=== PATIENT | female | born 1945 | race Caucasian/White ===

== ENCOUNTER 2018-09-14 09:59 | Outpatient (CLI) | payer MEDICARE, OTHER ==
--- NOTE | 2018-09-26 11:22 | Mammography Report ---
Reason: SCREENING MAMMO Procedure Date: 09/14/2018 Accession Number: [id number] / [id number] Procedure: CECELIA - Screening Mammo w/Harshil CPT Code: FULL RESULT: EXAM: Screening Mammo w/Harshil DATE: 09/14/2018 11:26 AM CLINICAL HISTORY: 73-year-old female for screening. TECHNIQUE: Bilateral CC and MLO views were obtained. COMPARISON: None FINDINGS: The breasts demonstrate scattered fibroglandular densities bilaterally. There are bilateral typically benign coarse calcifications. No suspicious masses, clustered microcalcifications, or regions of architectural distortion are identified. IMPRESSION: Benign findings RECOMMENDATION: Routine annual screening unless otherwise clinically indicated. BIRADS CATEGORY 2: Benign findings STANDARD QUALIFYING STATEMENTS: 1. This examination was not reviewed with the aid of Computer-Aided Detection (CAD). 2. A negative or benign imaging report should not delay biopsy if clinically suspicious findings are present. Consider surgical consultation if warrented. More than 5% of cancers are not identified by imaging. 3. Dense breasts may obscure an underlying neoplasm. 4. This examination was reviewed with the aid of 3D breast imaging (tomosynthesis).
== END 2018-09-14 10:00 | disposition home or self-care (01) ==
LOC: DI 09:59
DX: Z12.31 Encounter for screening mammogram for malignant neoplasm of breast (principal)
CPT/HCPCS: 77063; 77067

== ENCOUNTER 2021-12-04 07:16 | Outpatient (CLI) | payer MEDICARE, OTHER | END 2021-12-04 07:17 | disposition EMS.NT | LOC: EMS 07:16 | DX: R42 Dizziness and giddiness (principal) ==

== ENCOUNTER 2022-01-13 06:35 | Outpatient (CLI) | payer MEDICARE, OTHER | END 2022-01-13 06:36 | disposition short-term general hospital (02) | LOC: EMS 06:35 | DX: R55 Syncope and collapse (principal); Z79.01 Long term (current) use of anticoagulants | CPT/HCPCS: A0425; A0429 ==

== ENCOUNTER 2022-02-16 12:26 | Emergency (ER) | payer MEDICARE, OTHER ==
--- OUTSIDE RECORDS SUMMARY | 2022-02-16 12:48 | EXTERNAL MEDICAL SUMMARY RPT | Continuity of Care Document ---
:1945 Author Organization [facility] Address [address] [place] [address] Phone Care Team Providers Name Role Phone Denice Unavailable Unavailable Allergies No information. Encounters No information. Medications date description facility 20211221 Glipizide 10 MG Oral Tablet [facility] 20211203 ibandronic acid 150 MG Oral [facility] 20211203 Levothyroxine Sodium 0.1 MG Oral Tablet [facility] 20211125 Sulfamethoxazole 800 MG / Trimethoprim 160 MG Oral [facility] Tablet 20211123 Lisinopril 40 MG Oral Tablet [facility] spital Problems date description facility 20220208 Syncope and collapse [facility] 20211231 Other vitamin B12 deficiency anemias I [facility] 20211231 Epistaxis [facility] 20211229 Syncope and collapse [facility] 20211125 Cystitis, unspecified without hematuria [facility] Procedures date description facility 20220113 General Physician [facility] 20211231 General Physician [facility] 20211231 Finding [facility] 20211231 Diagnosis [facility] 20211229 [facility] 20211221 [facility] 20211209 [facility] 20211125 [facility] Results No information. Vital Signs date measurement value source 20211209 weight_standard 61.8 lb 20211209 weight_metric 28.03 kg 20211209 height_standard 64 in 20211209 height_metric 162.56 cm 20211209 heart_rate 70 /min 20211209 BP_systolic 120 mm[Hg] 20211209 BP_diastolic 68 mm[Hg] 20211209 BMI 23.3 kg/m2 20211221 weight_standard 59.68 lb 20211221 weight_metric 27.07 kg 20211221 height_standard 64 in 20211221 height_metric 162.56 cm 20211221 heart_rate 100 /min 20211221 BP_systolic 130 mm[Hg] 20211221 BP_diastolic 60 mm[Hg] 20211221 BMI 22.6 kg/m2 20220113 weight_standard 63.05 lb 20220113 weight_metric 28.6 kg 20220113 temperature_standard 97.6 F 20220113 temperature_metric 36.44 C 20220113 respiration_rate 18 /min 20220113 height_standard 63 in 20220113 height_metric 160.02 cm 20220113 heart_rate 91 /min 20220113 BP_systolic 136 mm[Hg] 20220113 BP_diastolic 61 mm[Hg] 20220113 BMI 24.6 kg/m2
[2022-02-16] MEDS ORDERED: LIDOCAINE 1%-EPI 1:100000 20 ML MDV SUBQ STA (12:51)
--- NOTE | 2022-02-16 12:52 | ED Physician Documentation ---
History of Present Illness - Stated complaint Stated Complaint: BLEEDING CHIN - Chief complaint Chief Complaint: General - Additonal information Additional information: 76-year-old female presents emergency department for evaluation of a bleeding chin. She noticed a red bump on the tip of her chin that did not resemble a pimple or anything infectious. She was watching TV and picked at it. She noticed as soon as she picked at it it began bleeding and she has been unable to get it to stop since. No history of similar in the past. She takes Plavix only. She is on no other anticoagulation. She is diabetic on Metformin. Review of Systems Constitutional: reports: Reviewed and negative Ears: reports: Reviewed and negative Nose: reports: Reviewed and negative Throat: reports: Reviewed and negative Cardiac: reports: Reviewed and negative Respiratory: reports: Reviewed and negative GI: reports: Reviewed and negative : reports: Reviewed and negative Skin: reports: Other (Bleeding on chin) PD PAST MEDICAL HISTORY - Present Medications Home Medications: Ambulatory Orders Medication Instructions Recorded Confirmed Clopidogrel [Plavix] 75 mg PO DAILY 02/16/22 02/16/22 Folic Acid 1 mg PO DAILY 02/16/22 02/16/22 Glipizide [Glipizide ER] 5 mg PO DAILY 02/16/22 02/16/22 Levothyroxine [Synthroid] 100 mcg PO QDAC 02/16/22 02/16/22 Lisinopril [Zestril] 20 mg PO DAILY 02/16/22 02/16/22 Metformin HCl [Metformin ER 1,000 mg PO BIDWM 02/16/22 02/16/22 Gastric] Methotrexate [Methotrexate Sodium] 2.5 mg PO ONCE 02/16/22 02/16/22 Pioglitazone HCl [Actos] 45 mg PO DAILY PM 02/16/22 02/16/22 Simvastatin [Zocor] 20 mg PO DAILY 02/16/22 02/16/22 - Allergies Allergies/Adverse Reactions: Allergies Allergy/AdvReac Type Severity Reaction Status Date / Time No Known Drug Allergies Allergy Verified 02/16/22 12:36 PD ED PE EXPANDED - General General: Alert, No acute distress - HEENT HEENT: Other (Superficial vessel on the center chin that is bleeding when not compressed.) Results - Vitals Vitals: Vital Signs - 24 hr 02/16/22 12:36 Temperature 36.9 C Heart Rate 103 H Respiratory 18 Rate Blood Pressure 166/65 H O2 Saturation 98 Oxygen O2 Source Room air Procedures - General procedure General procedure: Patient had a superficial vessel bleeding on the tip of her chin. Initially we injected 1% lidocaine with epi around the vessel but it did not stop the bleeding. We then used a small amount of Surgicel and Coban as compressive bandage. After 15 minutes the bleeding had fully stopped and a simple bandage was placed. PD MEDICAL DECISION MAKING - ED course Complexity details: considered differential, d/w patient ED course: 76-year-old female who is on Plavix only presents the emergency department with a superficial vessel on the tip of her chin which began bleeding when she picked at it. She was unable to get it to stop bleeding despite holding pressure at home. Here in the emergency department we initially injected with 1 cc of 1% lidocaine with epi. This did not get the bleeding to stop. We then placed Surgicel foam and a compressive bandage on the chin which seems to have adequately stop the bleeding. The patient accidentally picked at the Surgicel off and no further bleeding was noted. A simple bandage was placed. No findings to suggest infection or cellulitis. Emergent return precautions were discussed. Departure - Departure Disposition: 01 Home, Self Care Clinical Impression: Bleeding of blood vessel Condition: Stable Record reviewed to determine appropriate education?: Yes Comments: Marianne you are seen today in the emergency department for a blood vessel that was on the surface of the skin that you picked and it began to bleed. We were able to successfully get it to stop bleeding after injecting it with lidocaine/epinephrine and following up with a compressive bandage and a foam called Surgicel. It no longer appears to be bleeding. I would not manipulate or touch it for the next 48 to 72 hours. If you find that begins to rebleed you may need to return to the ER. I would like you to follow closely with your primary care provider or laborer mine though in the long-term I do not expect any complications.
[2022-02-16 14:04] VITALS: BP 133/59
== END 2022-02-16 14:04 | disposition home or self-care (01) ==
LOC: ED 12:26
DX: S01.80XA Unspecified open wound of other part of head, initial encounter (principal); R58 Hemorrhage, not elsewhere classified; X58.XXXA Exposure to other specified factors, initial encounter
CPT/HCPCS: 99281

== ENCOUNTER 2022-11-23 11:47 | Outpatient (CLI) | payer MEDICARE, OTHER | END 2022-11-23 11:48 | disposition critical access hospital (66) | LOC: EMS 11:47 | DX: R07.89 Other chest pain (principal) | CPT/HCPCS: A0425; A0429 ==

== ENCOUNTER 2022-11-23 12:05 | Emergency (ER) | payer MEDICARE, OTHER ==
--- NOTE | 2022-11-23 12:32 | XRAY Report ---
PROCEDURE: Chest 1 View X-Ray INDICATIONS: CP TECHNIQUE: One view of the chest was acquired. COMPARISON: None. FINDINGS: Surgical changes and devices: None. Lungs and pleura: Bilateral interstitial infiltrates and bronchiectasis. No pleural effusions or pne umothorax. Mediastinum: Mediastinal contours appear normal. Heart size is normal. Bones and chest wall: No suspicious bony lesions. Overlying soft tissues appear unremarkable. IMPRESSION: 1. Bilateral interstitial infiltrates and bronchiectasis suspicious for chronic interstitial lung dis ease. Recommend nonemergent HRCT of the lung for further evaluation. Reviewed by: Irina Alonso MD on 11/23/2022 12:31 PM PST Approved by: Irina Alonso MD on 11/23/2022 12:31 PM PST Station ID: [id number]
[2022-11-23 12:38] LABS: BASOPHILS % (AUTO) 0.2 %; EOSINOPHILS % (AUTO) 44.4 %; HCT - HEMATOCRIT 42.2 % (37.0-47.0); HGB - HEMOGLOBIN 13.3 g/dL (12.0-16.0); LYMPHOCYTES % (AUTO) 4.3 %; MEAN CORPUSCULAR HEMOGLOBIN 30.2 pg (27.0-31.0); MEAN CORPUSCULAR HGB CONC 31.5 g/dL (32.0-36.0); MEAN CORPUSCULAR VOLUME 95.9 fL (81.0-99.0); MEAN PLATELET VOLUME 10.6 fL (7.9-10.8); MONOCYTES % (AUTO) 6.8 %; NEUTROPHILS % (AUTO) 43.5 %; PLT - PLATELET COUNT 370 10^3/uL (130-450); RED CELL DISTRIBUTION WIDTH 13.1 % (12.0-15.0); WHITE BLOOD COUNT 26.3 x10^3/uL (4.8-10.8)
[2022-11-23 12:45] LABS: VBG BASE EXCESS -16.8 mmol/L (-2 - +2); VBG HCO3 10.9 mmol/L (23-28); VBG OXYGEN SATURATION 67.6 % (60-80); VBG PCO2 32.4 mmHg (41-51); VBG PO2 41.5 mmHg (25-47); VBG TOTAL CO2 11.9 mmol/L (24-29)
[2022-11-23 12:46] LABS: VBG PH 7.146 (7.31-7.41)
[2022-11-23 12:48] LABS: KETONES, SERUM (ACETEST) MODERATE (NEGATIVE)
[2022-11-23] MEDS ORDERED: SODIUM CHLORIDE 0.9% 1,000 ML IV STA ×2 (13:00→13:49)
[2022-11-23 13:01] LABS: SLIDE REVIEW? Indicated
[2022-11-23 13:02] LABS: ABNORMAL LYMPHS % (MANUAL) 0 %
[2022-11-23 13:03] LABS: ALBUMIN 4.6 g/dL (3.2-5.5); ALBUMIN/GLOBULIN RATIO 1.5 (1.0-2.2); ALKALINE PHOSPHATASE 47 IU/L (42-121); ALT ALANINE AMINOTRANSFERASE 22 IU/L (10-60); AST ASPARTATE AMINOTRANSFERASE 31 IU/L (10-42); BILIRUBIN,TOTAL 1.4 mg/dL (0.2-1.0); BUN - BLOOD UREA NITROGEN 28 mg/dL (6-20); CALCIUM 9.4 mg/dL (8.5-10.3); CHLORIDE 99 mmol/L (101-111); CREATININE 1.3 mg/dL (0.4-1.0); GFR - MDRD 40 (>89); GLUCOSE 435 mg/dL (70-100); LIPASE 34 U/L (22-51); POTASSIUM 4.5 mmol/L (3.5-5.0); SODIUM 135 mmol/L (135-145); TOTAL PROTEIN 7.7 g/dL (6.7-8.2)
[2022-11-23] MEDS: ONDANSETRON 4 MG/2 ML VIAL IVP STA ×2 (13:03→13:05)
[2022-11-23 13:06] LABS: CARBON DIOXIDE - CO2 11 mmol/L (21-32)
[2022-11-23] MEDS ORDERED: INSULIN REGULAR HUMAN 100 UNIT in SODIUM CHLORIDE 0.9% 100ML 99 ML IV STA (13:15)
[2022-11-23 13:18] LABS: BAND NEUTROPHILS % (MANUAL) 11 %; DIFFERENTIAL COMMENT MANUAL DIFFERENTIAL; LYMPHOCYTES # (MANUAL) 0.5 10^3/uL (1.5-3.5); LYMPHOCYTES % (MANUAL) 1 %; MONOCYTES # (MANUAL) 1.3 10^3/uL (0.0-1.0); NEUTROPHILS # (MANUAL) 24.5 10^3/uL (1.5-6.6); REACTIVE LYMPHS % (MANUAL) 1 %
[2022-11-23] MEDS ORDERED: ASPIRIN 325 MG TABLET PO STA (13:48)
[2022-11-23] MEDS ORDERED: ENOXAPARIN 60 MG/0.6 ML SYRINGE SUBQ SCH (14:00)
[2022-11-23] MEDS ORDERED: MORPHINE 2 MG/ML CARPUJECT IVP STA (14:13)
--- NOTE | 2022-11-23 14:26 | ED Physician Documentation ---
History of Present Illness - Stated complaint Stated Complaint: CP/SOA - Chief complaint Chief Complaint: Cardiac - History obtained from History obtained from: Patient - Additonal information Additional information: Patient is a 77-year-old female presenting for evaluation of chest pain that started yesterday evening. Patient reports that her pain started during the time when her dislocated his hip and required treatment at another hospital. The pain is in the middle of her chest and feels like an aching. It does not radiate elsewhere. She slept in a recliner last night and feels that this made it worse. Nothing makes her chest pain better or worse. She denies difficulty breathing. Today she started having nausea and vomiting this morning. She denies bilious or bloody emesis. She denies abdominal pain. She does have a monitor to check her blood sugars and noted that it was elevated. She does not use insulin for her diabetes. She has a history of TIAs but is not on any blood thinners or aspirin. She denies a history of prior heart attacks and does not see a heel lift gouger. Review of Systems Constitutional: denies: Fever Cardiac: reports: Chest pain / pressure Respiratory: denies: Dyspnea GI: reports: Nausea, Vomiting. denies: Abdominal Pain : denies: Dysuria Musculoskeletal: denies: Back pain Neurologic: denies: Headache PD PAST MEDICAL HISTORY - Past Medical History Past Medical History: Yes Endocrine/Autoimmune: Type 2 diabetes - Present Medications Home Medications: Ambulatory Orders Medication Instructions Recorded Confirmed Clopidogrel [Plavix] 75 mg PO DAILY 02/16/22 02/16/22 Folic Acid 1 mg PO DAILY 02/16/22 02/16/22 Glipizide [Glipizide ER] 5 mg PO DAILY 02/16/22 02/16/22 Levothyroxine [Synthroid] 100 mcg PO QDAC 02/16/22 02/16/22 Lisinopril [Zestril] 20 mg PO DAILY 02/16/22 02/16/22 Metformin HCl [Metformin ER 1,000 mg PO BIDWM 02/16/22 02/16/22 Gastric] Methotrexate [Methotrexate Sodium] 2.5 mg PO ONCE 02/16/22 02/16/22 Pioglitazone HCl [Actos] 45 mg PO DAILY PM 02/16/22 02/16/22 Simvastatin [Zocor] 20 mg PO DAILY 02/16/22 02/16/22 - Allergies Allergies/Adverse Reactions: Allergies Allergy/AdvReac Type Severity Reaction Status Date / Time No Known Drug Allergies Allergy Verified 02/16/22 12:36 - Social History Does the pt smoke?: No Smoking Status: Never smoker Does the pt drink ETOH?: No Does the pt have substance abuse?: No PD ED PE NORMAL - General General: Alert and oriented X 3, No acute distress, Well developed/nourished - HEENT HEENT: Atraumatic. No: Moist mucous membranes - Neck Neck: Supple, no meningeal sign - Cardiac Cardiac: Other (Tachycardic, regular rhythm) - Respiratory Respiratory: No respiratory distress, Clear bilaterally - Abdomen Abdomen: Soft, Non tender, Non distended - Derm Derm: Warm and dry - Extremities Extremities: No edema - Neuro Neuro: Alert and oriented X 3, No motor deficit, Normal speech Results - Vitals Vitals: Vital Signs - 24 hr 11/23/22 11/23/22 11/23/22 12:13 12:52 13:22 Temperature 36.6 C Heart Rate 109 H 109 H 110 H Respiratory 20 16 23 Rate Blood Pressure 151/89 H 142/77 H 143/82 H O2 Saturation 97 98 99 11/23/22 11/23/22 11/23/22 13:30 14:00 14:30 Temperature 36.7 C Heart Rate 111 H 123 H 122 H Respiratory 20 26 H Rate Blood Pressure 115/73 158/90 H O2 Saturation 99 94 100 11/23/22 11/23/22 11/23/22 15:00 15:30 16:00 Temperature Heart Rate 97 107 H 106 H Respiratory 28 H 22 17 Rate Blood Pressure 114/98 H 133/80 H 138/83 H O2 Saturation 97 95 96 11/23/22 11/23/22 11/23/22 16:30 17:00 17:30 Temperature 36.6 C Heart Rate 108 H 110 H 111 H Respiratory 21 22 20 Rate Blood Pressure 130/81 H 134/84 H 135/72 H O2 Saturation 95 97 98 Oxygen O2 Source Room air - EKG (time done) 1212 Rate: Rate (enter#) (108) Rhythm: Sinus tachycardia Intervals: RBBB Ischemia: T wave inversion (Inferior and lateral leads,). No: ST elevation c/w ischemia Compare to prior EKG: Old EKG unavailable - Labs Labs: Laboratory Tests 11/23/22 11/23/22 11/23/22 12:28 12:28 12:28 WBC 26.3 H RBC 4.40 Hgb 13.3 Hct 42.2 MCV 95.9 MCH 30.2 MCHC 31.5 L RDW 13.1 Plt Count 370 MPV 10.6 Neut # (Auto) Not Reportable Lymph # (Auto) Not Reportable [place] # (Auto) Not Reportable Eos # (Auto) Not Reportable Baso # (Auto) Not Reportable Absolute Nucleated RBC Not Reportable Total Counted 100 Band Neuts % (Manual) 11 H Reactive Lymphs % (Man) 1 Abnorm Lymph % (Manual) 0 Nucleated RBC % Not Reportable Neutrophils # (Manual) 24.5 H Lymphocytes # (Manual) 0.5 L Monocytes # (Manual) 1.3 H Eosinophils # (Manual) 0.0 Basophils # (Manual) 0.0 Differential Comment MANUAL DIFFERENTIAL Manual Slide Review Indicated PT INR VBG pH VBG pCO2 VBG pO2 VBG HCO3 VBG Total CO2 VBG O2 Saturation VBG Base Excess Sodium 135 Potassium 4.5 Chloride 99 L Carbon Dioxide 11 L* Anion Gap 25.0 H BUN 28 H Creatinine 1.3 H Estimated GFR (MDRD) 40 L Glucose 435 H Lactic Acid Calcium 9.4 Total Bilirubin 1.4 H AST 31 ALT 22 Alkaline Phosphatase 47 Troponin I High Sens 1135.9 H* Total Protein 7.7 Albumin 4.6 Globulin 3.1 Albumin/Globulin Ratio 1.5 Lipase 34 Urine Color Urine Clarity Urine pH Ur Specific [place] Urine Protein Urine Glucose (UA) Urine Ketones Urine Occult Blood Urine Nitrite Urine Bilirubin Urine Urobilinogen Ur Leukocyte Esterase Ur Microscopic Review Urine Culture Comments Nasal Adenovirus (PCR) Nasal B. parapertussis DNA (PCR) Nasal Coronavir 229E PCR Nasal Coronavir HKU1 PCR Nasal Coronavir NL63 PCR Nasal Coronavir OC43 PCR Nasal Enterovir/Rhinovir PCR Nasal Influenza B PCR Nasal Influenza A PCR Nasal Parainfluen 1 PCR Nasal Parainfluen 2 PCR Nasal Parainfluen 3 PCR Nasal Parainfluen 4 PCR Nasal RSV (PCR) Nasal B.pertussis DNA PCR Nasal C.pneumoniae (PCR) Harry Human Metapneumo PCR Nasal M.pneumoniae (PCR) Nasal SARS-CoV-2 (PCR) Serum Ketones MODERATE H 11/23/22 11/23/2223 12:28 13:17 13:57 WBC RBC Hgb Hct MCV MCH MCHC RDW Plt Count MPV Neut # (Auto) Lymph # (Auto) [place] # (Auto) Eos # (Auto) Baso # (Auto) Absolute Nucleated RBC Total Counted Band Neuts % (Manual) Reactive Lymphs % (Man) Abnorm Lymph % (Manual) Nucleated RBC % Neutrophils # (Manual) Lymphocytes # (Manual) Monocytes # (Manual) Eosinophils # (Manual) Basophils # (Manual) Differential Comment Manual Slide Review PT INR VBG pH 7.146 L VBG pCO2 32.4 L VBG pO2 41.5 VBG HCO3 10.9 L VBG Total CO2 11.9 L VBG O2 Saturation 67.6 VBG Base Excess -16.8 L Sodium Potassium Chloride Carbon Dioxide Anion Gap BUN Creatinine Estimated GFR (MDRD) Glucose Lactic Acid 3.5 H* Calcium Total Bilirubin AST ALT Alkaline Phosphatase Troponin I High Sens Total Protein Albumin Globulin Albumin/Globulin Ratio Lipase Urine Color Urine Clarity Urine pH Ur Specific [place] Urine Protein Urine Glucose (UA) Urine Ketones Urine Occult Blood Urine Nitrite Urine Bilirubin Urine Urobilinogen Ur Leukocyte Esterase Ur Microscopic Review Urine Culture Comments Nasal Adenovirus (PCR) NOT DETECTED Nasal B. parapertussis DNA (PCR) NOT DETECTED Nasal Coronavir 229E PCR NOT DETECTED Nasal Coronavir HKU1 PCR NOT DETECTED Nasal Coronavir NL63 PCR NOT DETECTED Nasal Coronavir OC43 PCR NOT DETECTED Nasal Enterovir/Rhinovir PCR NOT DETECTED Nasal Influenza B PCR NOT DETECTED Nasal Influenza A PCR NOT DETECTED Nasal Parainfluen 1 PCR NOT DETECTED Nasal Parainfluen 2 PCR NOT DETECTED Nasal Parainfluen 3 PCR NOT DETECTED Nasal Parainfluen 4 PCR NOT DETECTED Nasal RSV (PCR) NOT DETECTED Nasal B.pertussis DNA PCR NOT DETECTED Nasal C.pneumoniae (PCR) NOT DETECTED Harry Human Metapneumo PCR NOT DETECTED Nasal M.pneumoniae (PCR) NOT DETECTED Nasal SARS-CoV-2 (PCR) NOT DETECTED Serum Ketones 11/23/22 11/23/22 11/23/22 16:40 17:05 17:05 WBC RBC Hgb Hct MCV MCH MCHC RDW Plt Count MPV Neut # (Auto) Lymph # (Auto) [place] # (Auto) Eos # (Auto) Baso # (Auto) Absolute Nucleated RBC Total Counted Band Neuts % (Manual) Reactive Lymphs % (Man) Abnorm Lymph % (Manual) Nucleated RBC % Neutrophils # (Manual) Lymphocytes # (Manual) Monocytes # (Manual) Eosinophils # (Manual) Basophils # (Manual) Differential Comment Manual Slide Review PT 11.4 INR 1.0 VBG pH VBG pCO2 VBG pO2 VBG HCO3 VBG Total CO2 VBG O2 Saturation VBG Base Excess Sodium 138 Potassium 3.7 Chloride 107 Carbon Dioxide 15 L Anion Gap 16.0 H BUN 23 H Creatinine 1.2 H Estimated GFR (MDRD) 44 L Glucose 270 H Lactic Acid Calcium 8.4 L Total Bilirubin 0.9 AST 33 ALT 22 Alkaline Phosphatase 40 L Troponin I High Sens Total Protein 6.8 Albumin 3.9 Globulin 2.9 Albumin/Globulin Ratio 1.3 Lipase Urine Color YELLOW Urine Clarity CLEAR Urine pH 6.0 Ur Specific [place] >=1.030 H Urine Protein TRACE Urine Glucose (UA) 500 H Urine Ketones >=80 H Urine Occult Blood TRACE-INTA Urine Nitrite NEGATIVE Urine Bilirubin NEGATIVE Urine Urobilinogen 0.2 (NORMAL) Ur Leukocyte Esterase NEGATIVE Ur Microscopic Review NOT INDICATED Urine Culture Comments NOT INDICATED Nasal Adenovirus (PCR) Nasal B. parapertussis DNA (PCR) Nasal Coronavir 229E PCR Nasal Coronavir HKU1 PCR Nasal Coronavir NL63 PCR Nasal Coronavir OC43 PCR Nasal Enterovir/Rhinovir PCR Nasal Influenza B PCR Nasal Influenza A PCR Nasal Parainfluen 1 PCR Nasal Parainfluen 2 PCR Nasal Parainfluen 3 PCR Nasal Parainfluen 4 PCR Nasal RSV (PCR) Nasal B.pertussis DNA PCR Nasal C.pneumoniae (PCR) Harry Human Metapneumo PCR Nasal M.pneumoniae (PCR) Nasal SARS-CoV-2 (PCR) Serum Ketones 11/23/22 17:05 WBC RBC Hgb Hct MCV MCH MCHC RDW Plt Count MPV Neut # (Auto) Lymph # (Auto) [place] # (Auto) Eos # (Auto) Baso # (Auto) Absolute Nucleated RBC Total Counted Band Neuts % (Manual) Reactive Lymphs % (Man) Abnorm Lymph % (Manual) Nucleated RBC % Neutrophils # (Manual) Lymphocytes # (Manual) Monocytes # (Manual) Eosinophils # (Manual) Basophils # (Manual) Differential Comment Manual Slide Review PT INR VBG pH VBG pCO2 VBG pO2 VBG HCO3 VBG Total CO2 VBG O2 Saturation VBG Base Excess Sodium Potassium Chloride Carbon Dioxide Anion Gap BUN Creatinine Estimated GFR (MDRD) Glucose Lactic Acid Calcium Total Bilirubin AST ALT Alkaline Phosphatase Troponin I High Sens 1562.7 H* Total Protein Albumin Globulin Albumin/Globulin Ratio Lipase Urine Color Urine Clarity Urine pH Ur Specific [place] Urine Protein Urine Glucose (UA) Urine Ketones Urine Occult Blood Urine Nitrite Urine Bilirubin Urine Urobilinogen Ur Leukocyte Esterase Ur Microscopic Review Urine Culture Comments Nasal Adenovirus (PCR) Nasal B. 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 Sosa, cardiology at the [facility]. They have added patient to their transfer list but They do not have any current beds available. He agrees with the plan to give the patient aspirin and Lovenox. He also agrees that we should hold the beta-edgard at this time. Patient is tachycardic but this may be related to her DKA and dehydration. Patient presenting for evaluation of chest pain that started last night. She additionally has nausea and vomiting. She is noted to be tachycardic. EKG is a sinus tach with T wave inversions. Labs reviewed and significant for multiple abnormalities including Acidosis likely related to DKA, elevated troponin Concerning for NSTEMI, And leukocytosis.Patient was started on Lovenox and aspirin. After consultation with cardiology we are holding the beta-edgard for now. Patient also started on insulin drip. Patient was also started on Rocephin given the leukocytosis and bandemia. Is unclear the source as her chest x-ray does not suggest pneumonia and her urine is negative for infection. Her abdominal exam has remained benign.Patient requires transfer to facility with cardiology capabilities. She has been placed on area wait list. Unfortunately there is a region wide bed shortage and transfer may take up to several days. Patient is aware of this. Repeat labs have been ordered. Patient signed out at shift change. Departure - Departure Disposition: 02 Transfer Acute Care Hosp Clinical Impression: NSTEMI (non-ST elevated myocardial infarction), DKA (diabetic ketoacidosis), Leukocytosis Condition: Serious
[2022-11-23 14:30] LABS: B. PARAPERTUSSIS- RESP PCR PAN NOT DETECTED; B. PERTUSSIS- RESP PCR PANEL NOT DETECTED; C. PNEUMONIAE- RESP PCR PANEL NOT DETECTED; CORONAVIRUS 229E-RESP PCR NOT DETECTED; CORONAVIRUS HKU1-RESP PCR NOT DETECTED; CORONAVIRUS NL63-RESP PCR NOT DETECTED; CORONAVIRUS OC43-RESP PCR NOT DETECTED; HUMAN METAPNEUMOVIRUS NOT DETECTED; INFLUENZA A- RESP PCR PANEL NOT DETECTED; INFLUENZA B - RESP PCR PANEL NOT DETECTED; M. PNEUMONIAE- RESP PCR PANEL NOT DETECTED; PARAINFLUENZA VIRUS 1 NOT DETECTED; PARAINFLUENZA VIRUS 2 NOT DETECTED; PARAINFLUENZA VIRUS 3 NOT DETECTED; PARAINFLUENZA VIRUS 4 NOT DETECTED; RHINOVIRUS/ENTEROVIRUS NOT DETECTED; RSV- RESP PCR PANEL NOT DETECTED; SARS-CoV-2 -RESP PCR PANEL NOT DETECTED
[2022-11-23] MEDS ORDERED: cefTRIAXone 1 GM in SODIUM CHLORIDE 0.9% MINIBAG 100 ML IV STA (16:17)
[2022-11-23 16:54] LABS: BILIRUBIN,URINE NEGATIVE (NEGATIVE); GLUCOSE, URINE (UA) 500 mg/dL (NEGATIVE); KETONES,URINE (UA) >=80 mg/dL (NEGATIVE); LEUKOCYTE ESTERASE, URINE NEGATIVE (NEGATIVE); NITRITE,URINE NEGATIVE (NEGATIVE); OCCULT BLOOD,URINE TRACE-INTA (NEGATIVE); PROTEIN,URINE TRACE mg/dL (NEGATIVE); UROBILINOGEN,URINE 0.2 (NORMAL) E.U./dL (NORMAL)
[2022-11-23 16:57] LABS: CLARITY,URINE CLEAR (CLEAR)
[2022-11-23 17:17] LABS: PT - PROTHROMBIN TIME 11.4 secs (9.9-12.6)
[2022-11-23] MEDS ORDERED: ONDANSETRON 4 MG/2 ML VIAL IVP PRN (17:18)
[2022-11-23 17:23] LABS: ALBUMIN 3.9 g/dL (3.2-5.5); ALBUMIN/GLOBULIN RATIO 1.3 (1.0-2.2); BILIRUBIN,TOTAL 0.9 mg/dL (0.2-1.0); CALCIUM 8.4 mg/dL (8.5-10.3); CREATININE 1.2 mg/dL (0.4-1.0); POTASSIUM 3.7 mmol/L (3.5-5.0); TOTAL PROTEIN 6.8 g/dL (6.7-8.2)
[2022-11-23] MEDS ORDERED: D5.45NS W/20 MEQ KCL 1,000 ML IV STA ×2 (19:04→23:35)
[2022-11-23] MEDS ORDERED: VANCOMYCIN INJ 2 GM in SODIUM CHLORIDE 0.9% 500 ML IV STA (19:31)
--- NOTE | 2022-11-23 19:33 | ED Physician Documentation ---
ED Addendum - Addendum Addendum: 11/23/22 19:[address] Hernandez at shift change. Briefly this is a 77-year-old woman who is now boarding in this emergency department. She has a non-STEMI but is pain-free now. She is on an insulin drip for DKA. She has a significant acidosis and a rising lactate. She is tachypneic and tachycardic. Her blood sugar has been getting better. I am going to add vancomycin to her current antibiotic regimen for unknown source sepsis. She has a benign belly and is mentating well. She is waitlisted to multiple facilities for transfer but we anticipate a prolonged ED course because of hospitalwide hospital capacity issues.
--- NOTE | 2022-11-23 20:19 | ED Physician Documentation ---
ED Addendum - Addendum Addendum: 11/23/22 20:19 Given the need for multiple drips, I discussed with the patient a central line and she would like to go ahead with it. Procedure note, central line: Verbal And written informed consent was obtained, risks including bleeding, infection, pneumothorax, arterial puncture, and need for surgery were discussed with the patient. The patient was prepped twice with ChloraPrep. I wore cap, mask, gown, sterile gloves. Full sterile sheet was utilized. Using real-time ultrasound guidance the right internal jugular vein was accessed and using Seldinger technique a triple-lumen 7 Chinese central line was placed in standard fashion and sutured into place without immediate com plications.
[2022-11-23] MEDS ORDERED: VANCOMYCIN 1 GM VIAL ONE (20:57)
[2022-11-23] MEDS ORDERED: VANCOMYCIN INJ 1.25 GM in SODIUM CHLORIDE 0.9% 250 ML IV ONE (21:00)
--- NOTE | 2022-11-23 21:22 | XRAY Report ---
PROCEDURE: Chest for Line Placement INDICATIONS: RIJ CVC TECHNIQUE: One view of the chest was acquired. COMPARISON: None. FINDINGS: Surgical changes and devices: Interval right-sided central venous catheter has been placed with dist al tip projecting over the right atrium. Lungs and pleura: There is an overall appearance of increased pulmonary vascularity and interstitial prominence. No pneumothorax. Mediastinum: Mediastinal contours appear normal. Heart size is slightly prominent. Bones and chest wall: No suspicious bony lesions. Overlying soft tissues appear unremarkable. IMPRESSION: Interval central venous catheter placement. Main findings are stable compared to prior exam. Reviewed by: Keerthi Lane MD on 11/23/2022 9:21 PM PST Approved by: Keerthi Lane MD on 11/23/2022 9:21 PM PST Station ID: [id number]
[2022-11-23] MEDS: ENOXAPARIN 60 MG/0.6 ML SYRINGE SUBQ SCH (23:37)
[2022-11-24 05:27] LABS: BASOPHILS % (AUTO) 0.1 %; HCT - HEMATOCRIT 34.7 % (37.0-47.0); HGB - HEMOGLOBIN 11.5 g/dL (12.0-16.0); LYMPHOCYTES % (AUTO) 8.1 %; MEAN CORPUSCULAR HEMOGLOBIN 30.3 pg (27.0-31.0); MEAN CORPUSCULAR HGB CONC 33.1 g/dL (32.0-36.0); MEAN CORPUSCULAR VOLUME 91.3 fL (81.0-99.0); MEAN PLATELET VOLUME 10.2 fL (7.9-10.8); MONOCYTES % (AUTO) 7.8 %; NEUTROPHILS % (AUTO) 83.4 %; PLT - PLATELET COUNT 296 10^3/uL (130-450); RED CELL DISTRIBUTION WIDTH 13.3 % (12.0-15.0); WHITE BLOOD COUNT 20.9 x10^3/uL (4.8-10.8)
[2022-11-24 05:29] LABS: ABNORMAL LYMPHS % (MANUAL) 0 %; BAND NEUTROPHILS % (MANUAL) 0 %
[2022-11-24] MEDS ORDERED: D5.45NS W/20 MEQ KCL 1,000 ML IV ONE (05:29)
[2022-11-24 05:36] LABS: KETONES, SERUM (ACETEST) NEGATIVE (NEGATIVE)
[2022-11-24 05:41] LABS: DIFFERENTIAL COMMENT MANUAL DIFFERENTIAL; LYMPHOCYTES # (MANUAL) 2.3 10^3/uL (1.5-3.5); LYMPHOCYTES % (MANUAL) 11 %; MONOCYTES # (MANUAL) 1.7 10^3/uL (0.0-1.0); NEUTROPHILS # (MANUAL) 16.9 10^3/uL (1.5-6.6); PLATELET ESTIMATE, MANUAL NORMAL (130-450,000) (NORMAL); PLATELET MORPHOLOGY NORMAL APPEARANCE (NORMAL); RBC MORPHOLOGY (MULTIPLE) NORMAL APPEARANCE (NORMAL); WBC MORPHOLOGY (MULTIPLE) NORMAL APPEARANCE (NORMAL)
[2022-11-24] MEDS ORDERED: D5.45NS W/20 MEQ KCL 1,000 ML IV STA (05:43)
[2022-11-24 05:45] LABS: BUN - BLOOD UREA NITROGEN 17 mg/dL (6-20); CARBON DIOXIDE - CO2 18 mmol/L (21-32); CHLORIDE 110 mmol/L (101-111); CREATININE 0.8 mg/dL (0.4-1.0); GFR - MDRD 70 (>89); GLUCOSE 191 mg/dL (70-100); SODIUM 137 mmol/L (135-145)
[2022-11-24 05:52] LABS: PHOSPHORUS < 1.0 mg/dL (2.5-4.6)
[2022-11-24] MEDS ORDERED: SODIUM PHOSPHATE 20 MMOL in SODIUM CHLORIDE 0.9% 250 ML IV STA (06:03)
[2022-11-24] MEDS ORDERED: SODIUM PHOSPHATE 21 MMOL in SODIUM CHLORIDE 0.9% 250 ML IV ONE (08:30)
[2022-11-24 08:48] LABS: VBG BASE EXCESS -9.2 mmol/L (-2 - +2); VBG HCO3 14.4 mmol/L (23-28); VBG PCO2 25.4 mmHg (41-51); VBG PH 7.371 (7.31-7.41); VBG TOTAL CO2 15.2 mmol/L (24-29)
[2022-11-24 08:49] LABS: VBG OXYGEN SATURATION 57.3 % (60-80)
[2022-11-24] MEDS ORDERED: INSULIN REGULAR HUMAN 100 UNIT/1 ML 10 ML MDV SUBQ STA (08:56)
[2022-11-24] MEDS ORDERED: cefTRIAXone 1 GM in SODIUM CHLORIDE 0.9% MINIBAG 100 ML IV SCH (09:00)
[2022-11-24] MEDS ORDERED: ASPIRIN CHEW 81 MG TABLET PO SCH (09:00)
[2022-11-24 09:10] LABS: ALBUMIN 3.2 g/dL (3.2-5.5); ALBUMIN/GLOBULIN RATIO 1.2 (1.0-2.2); BILIRUBIN,TOTAL 0.9 mg/dL (0.2-1.0); CALCIUM 7.7 mg/dL (8.5-10.3); CREATININE 0.9 mg/dL (0.4-1.0); MAGNESIUM 1.5 mg/dL (1.7-2.8); PHOSPHORUS 1.2 mg/dL (2.5-4.6); POTASSIUM 3.8 mmol/L (3.5-5.0); TOTAL PROTEIN 5.8 g/dL (6.7-8.2)
[2022-11-24] MEDS ORDERED: NEUTRA-PHOS 250 MG TABLET PO STA (09:34)
[2022-11-24] MEDS ORDERED: MAG HYDROX/AL HYDROX/SIMETH 30 ML UDC PO STA (09:37)
[2022-11-24] MEDS: ENOXAPARIN 60 MG/0.6 ML SYRINGE SUBQ SCH (09:55)
[2022-11-24] MEDS ORDERED: carvediloL 3.125 MG TABLET PO SCH (10:00)
[2022-11-24] MEDS ORDERED: INSULIN GLARGINE-YFGN 300 UNIT/3 ML PEN SUBQ SCH (12:00)
--- NOTE | 2022-11-24 12:57 | ED Physician Documentation ---
ED Addendum - Addendum Addendum: 11/24/22 12:57 Subjective: She is feeling tired and winded with minimal energy. Even getting up on the bed been makes her short of breath. She has intermittent pleuritic type chest pains but no constant chest pain. Objective: Generally has been tachypneic and borderline tachycardic with mild hypertension. She appears well Heart regular rate and rhythm, no murmur Lungs clear to auscultation bilaterally Abdomen: Soft and nontender Extremities: No pedal edema White count is downtrending today, blood cultures negative to date, acidosis has improved significantly and her anion gap is closed. Troponin peaked at 1562. Phosphorus quite low this morning and repleted by my partner. Preliminary echo report reviewed: LVEF 24% Distal RV free wall akinetic with wall motion abnormalities trace MR, mild TR, increased right atrial pressure. Plan: 1. DKA resolved, have transitioned over to 10 units of subcutaneous Lantus a day. She was not previously on insulin so we will need to titrate based on her blood sugars. 2. Non-STEMI: Apparently with severe wall motion abnormalities and ischemic cardiomyopathy. On medical management. Will increase her Coreg today given the tachycardias and elevated blood pressures. She continues on Lovenox and aspirin as well. I will also add a statin. She is currently boarding in the emergency department pending transfer to a facility capable of cardiac intervention. The health digital community manager tells me there are still no hospitals in the area with open beds available for transfer.
[2022-11-24] MEDS ORDERED: ATORVASTATIN 40 MG TABLET PO SCH (13:00)
[2022-11-24 15:18] VITALS: BP 137/98
[2022-11-24] MEDS ORDERED: carvediloL 12.5 MG TABLET PO SCH (21:00)
[2022-11-24] MEDS ORDERED: VANCOMYCIN INJ 0.75 GM in SODIUM CHLORIDE 0.9% 250 ML IV SCH (21:00)
[2022-11-24] MEDS ORDERED: VANCOMYCIN INJ 1 GM in SODIUM CHLORIDE 0.9% 250 ML IV SCH (21:00)
== END 2022-11-24 15:30 | disposition short-term general hospital (02) ==
LOC: EDUNIT# → ED 12:05
DX: I21.4 Non-ST elevation (NSTEMI) myocardial infarction (principal); E11.10 Type 2 diabetes mellitus with ketoacidosis without coma; Z79.84 Long term (current) use of oral hypoglycemic drugs; D72.829 Elevated white blood cell count, unspecified; Z20.822 Contact with and (suspected) exposure to COVID-19
CPT/HCPCS: 36415; 71045; 80048; 80053; 81003; 82009; 82803; 83605; 83690; 83735; 84100; 84484; 85025; 85610; 87040; 87633; 93005; 93308; 96361; 96365; 96366; 96367; 96368; 96372; 96375; 99285; A9270; J1650; J1815; J3370; 81001; 87086

== ENCOUNTER 2022-12-02 13:54 | Outpatient (CLI) | payer MEDICARE, OTHER | END 2022-12-02 13:55 | disposition short-term general hospital (02) | LOC: EMS 13:54 | DX: R07.9 Chest pain, unspecified (principal) | CPT/HCPCS: A0425; A0427 ==